=== PATIENT | female | born 1950 | race Caucasian/White ===

== ENCOUNTER 2016-03-28 13:04 | Emergency (ER) | payer MEDICARE, MEDICAID ==
[~2016-03-28 13:04] MED LIST: /CELE20CA OR; AMIT75TA2 OR; AMRIX OR; Amitiza OR; COLA100C2 OR; FLEXERIL OR; LIDO5DIS EXT; LISIPOW; LUBIPROSTONE; MS C15TA5 OR; PRIL20CA OR; PRIN10TA OR; ROSU10TA OR; TYLE500T53 OR; VICO5TAB; VICODIN OR
[2016-03-28] MEDS ORDERED: LORazepam 2 MG/ML VIAL (J2060) As Ordered ONE (13:27)
[2016-03-28] MEDS ORDERED: PERCOCET 5MG/325MG TAB As Ordered ONE (14:42)
--- NOTE | 2016-03-28 15:06 | REP ---
UNILATERAL LEFT RIBS, PA CHEST, FIVE VIEWS: HISTORY: Trauma. COMPARISON: 07/27/2014 Linear densities are present in the left lower lobe consistent with atelectasis or scar. The right lung is clear. The heart is normal in size. The pulmonary vasculature is normal in appearance. There is an old fracture of the left 5th rib. There is a possible fracture of the left 8th rib. There is no pneumothorax. IMPRESSION: 1. Left lower lobe atelectasis or scar. 2. There is a possible fracture of the left 8th rib. Signed by Naga Mari MD 03/28/2016 03:07 P
--- NOTE | 2016-03-28 15:09 | EDDOCDS ---
Physician Documentation [facility] Name: Kenzie Law Age: 65 yrs Sex: Female : 1950 Arrival Date: 03/28/2016 Time: 13:04 Bed 12 Private MD: Vern Galvez A. Disposition: 03/28/16 14:36 Discharged to Home/Self Care. Impression: Fracture of one rib, left side. - Condition is Stable. - Discharge Instructions: Rib Fracture. - Prescriptions for Percocet 5- 325 mg Oral Tablet - take 1 tablet by ORAL route every 6 hours As needed MDD: 4 tabs; 20 tablet. - Medication Reconciliation, Local Pharmacy Hours form. - Follow up: Vern Galvez; When: 4 - 5 days; Reason: Recheck today's complaints, Continuance of care. - Problem is new. - Symptoms are unchanged. - Notes: use incentive spiometer as directed Historical: - Allergies: no known allergies; - Home Meds: 1. Lisinopril Oral 2. Prilosec Oral 3. hydrocodone 4. Amitriptyline Oral - PMHx: Hypertension; Chronic Back pain; - PSHx: Laminectomy with fusion; Left hip repair; Right knee surgery; Hysterectomy; Cholecystectomy; Appendectomy; elbow surgery; - Social history: Smoking status: Patient uses tobacco products, heavy tobacco smoker. No barriers to communication noted, The patient speaks fluent Uzbek, Speaks appropriately for age. - Family history: Not pertinent. - : The pt / caregiver states he / she is not on anticoagulants. Home medication list is obtained from the patient. - Exposure Risk Screening:: None identified. Vital Signs: 03/28 13:23 BP 169 / 79; Pulse 102; Resp 20; Pulse Ox 90% on R/A; Weight 76.66 kg / 169.01 lbs; kc3 Height 5 ft. 1 in. (154.94 cm); 15:07 BP 136 / 65; Pulse 92; Resp 20; Temp 98.3(O); Pulse Ox 93% on R/A; kc3 13:23 Body Mass Index 31.93 (76.66 kg, 154.94 cm) kc3 MDM: 13:15 LORazepam 0.5 mg IVP once ordered. ke 13:16 Rib Unilat W/PA Chest Only Ordered. EDMS 14:33 Call Respiratory ordered. ke 14:33 -Incentive Spirometer ordered. ke 14:35 Call Respiratory complete. kc3 14:40 oxyCODONE-acetaminophen 5 mg-325 mg 1 tabs PO once ordered. ke 15:01 T-Sheet-- Draft Copy was scanned into [employer] and attached to record. gb Administered Medications: 13:40 Drug: LORazepam 0.5 mg [lorazepam 2 mg/mL injection solution (0.25 mL)] Route: IVP; kc3 Site: left forearm; 14:45 Drug: oxyCODONE-acetaminophen 1 tabs [oxycodone-acetaminophen 5 mg-325 mg tablet (1 kc3 tabs)] Route: PO; Signatures: Dispatcher [employer] EDMS Erika Whitehead, Reg Reg gb Jose Kemp, PSYCHOLOGIST INDUSTRIAL ORGANIZATIONAL PSYCHOLOGIST INDUSTRIAL ORGANIZATIONAL Althea Tellez,RN RN kc3 The chart was reviewed and I authenticate all verbal orders and agree with the evaluation and treatment provided.Attachments: 15:01 T-Sheet-- Draft Copy gb MTDD
--- NOTE | 2016-03-28 15:09 | EDDOCDS ---
Nurse's Notes [facility] Name: Kenzie Law Age: 65 yrs Sex: Female : 1950 Arrival Date: 03/28/2016 Time: 13:04 Bed 12 Private MD: Vern Galvez A. Diagnosis: Fracture of one rib, left side Presentation: 03/28 13:16 Presenting complaint: EMS states: pt with left rib pain after large tote fell from kc3 shelf landing on pt yesterday. Pt reports pain began this morning after raising her left arm. Adult Sepsis Screening: The patient does not have new or worsening altered mentation. Patient's respiratory rate is less than 22. Systolic blood pressure is greater than 100. Patient has a qSOFA score of 0- Negative Sepsis Screen. Suicide/Homicide risk assessment- the patient denies having any suicidal and/or homicidal ideations and does not present with any other emotional, behavioral or mental health complaints. Status: Patient is not a press service reader or dependent. Transition of care: patient was not received from another setting of care. 13:16 Acuity: BENTON Level 3 kc3 13:16 Method Of Arrival: Ambulance kc3 13:38 Care prior to arrival: Medications administered prior to arrival: Morphine 2mg IV x 2 kc3 doses for total of 4mg Morphine given by EMS enroute. Triage Assessment: 13:17 General: Appears uncomfortable, Behavior is appropriate for age, cooperative. Pain: kc3 Location: left rib Pain currently is 4 out of 10 on a pain scale. At worst was 10 out of 10 on a pain scale. Neurological: Level of Consciousness is awake, alert, obeys commands, Oriented to person, place, time. Respiratory: Airway is patent Respiratory effort is even, labored, Respiratory pattern is regular, symmetrical. Derm: Skin is pink, warm & dry. Musculoskeletal: Circulation, motion, and sensation intact. Historical: - Allergies: no known allergies; - Home Meds: 1. Lisinopril Oral 2. Prilosec Oral 3. hydrocodone 4. Amitriptyline Oral - PMHx: Hypertension; Chronic Back pain; - PSHx: Laminectomy with fusion; Left hip repair; Right knee surgery; Hysterectomy; Cholecystectomy; Appendectomy; elbow surgery; - Social history: Smoking status: Patient uses tobacco products, heavy tobacco smoker. No barriers to communication noted, The patient speaks fluent Hungarian, Speaks appropriately for age. - Family history: Not pertinent. - : The pt / caregiver states he / she is not on anticoagulants. Home medication list is obtained from the patient. - Exposure Risk Screening:: None identified. Screenin:38 Screening information is obtained from the patient. Fall risk: At risk due to injury, kc3 The following interventions are performed due to a positive Fall Risk Screen: Fall Risk is added to Special Handling on the patient Summary Screen. A Fall Risk Bracelet was applied to the patient. Side Rails are placed in the up position. A Call Ko is given with instruction to call for help when getting out of bed. Fall Alert bracelet is placed on the patient. Assistance ADL's: requires no assistance with activities of daily living. Abuse/DV Screen: The patient / caregiver reports he/she is: not in a situation that causes fear, pain or injury. Nutritional screening: No deficits noted. home support is adequate. 15:08 Advance Directives: Currently, there is no health care proxy. kc3 Assessment: 13:38 General: See triage note. . kc3 14:20 General: Appears uncomfortable, Behavior is appropriate for age, cooperative, Pt kc3 requesting pain medication. Jose JAVA WEBSPHERE DEVELOPER notified. . Neurological: Level of Consciousness is awake, alert, obeys commands. Respiratory: Airway is patent Respiratory effort is even, unlabored. Derm: Skin is pink, warm & dry. 15:06 General: Appears uncomfortable, Behavior is appropriate for age, cooperative. Pain: kc3 Location: left rib. Neurological: Level of Consciousness is awake, alert, obeys commands, Oriented to person, place, time. Respiratory: Airway is patent Respiratory effort is even, unlabored. Derm: Skin is pink, warm & dry. Vital Signs: 13:23 BP 169 / 79; Pulse 102; Resp 20; Pulse Ox 90% on R/A; Weight 76.66 kg; Height 5 ft. 1 kc3 in. (154.94 cm); 15:07 BP 136 / 65; Pulse 92; Resp 20; Temp 98.3(O); Pulse Ox 93% on R/A; kc3 13:23 Body Mass Index 31.93 (76.66 kg, 154.94 cm) kc3 Vitals: 13:23 Log In Time N/A - ambulance arrival. kc3 ED Course: 13:05 Patient visited by Mely Eugene, City Engineer. lbd 13:05 Patient moved to Waiting lbd 13:07 Vern Galvez is Private Physician. lbd 13:07 Althea Hernandez,RN is Primary Nurse. lbd 13:07 Patient moved to 12 lbd 13:12 Jose Kemp FNP is [facility]. ke 13:12 Patient visited by Jose Kemp FNP. ke 13:12 Patient visited by Jose Kemp FNP. ke 13:19 Triage Initiated kc3 13:35 Patient visited by Jose Kemp FNP. ke 13:39 The patient / caregiver is instructed regarding the plan of care and ED course. kc3 13:39 Maintain field IV. Dressing intact. Site clean & dry. Gauge & site: 18G left forearm. kc3 14:06 Patient visited by Ochoa Freed PCA. jlf 14:36 Vern Galvez is Referral Physician. ke 15:01 T-Sheet-- Draft Copy was scanned into [employer] and attached to record. gb 15:08 Discontinued IV lock intact, bleeding controlled, pressure dressing applied, No kc3 redness/swelling at site. No procedures done that require assistance. Administered Medications: 13:40 Drug: LORazepam 0.5 mg [lorazepam 2 mg/mL injection solution (0.25 mL)] Route: IVP; kc3 Site: left forearm; 14:45 Drug: oxyCODONE-acetaminophen 1 tabs [oxycodone-acetaminophen 5 mg-325 mg tablet (1 kc3 tabs)] Route: PO; RT: 14:42 Incentive Spirometry performed: 2 inspirations. Volume of inspiration: 1000 mls. sd7 Patient Education: Pt unable to take deep breath without extreme pain at this time. Pt instructed on importance of I/S and verbalizes understanding and will use. Order Results: There are currently no results for this order. Outcome: 14:36 Discharge ordered by Provider. ke 15:08 Discharge Assessment: Patient awake, alert and oriented x 3. No cognitive and/or kc3 functional deficits noted. Patient verbalized understanding of disposition instructions. patient administered narcotics - yes. Pt provided with safe discharge. The following High Risk Discharge criteria are identified: None. Condition: stable. Discharge instructions given to patient, Instructed on discharge instructions, follow up and referral plans. medication usage, Demonstrated understanding of instructions, medications, Pt was receptive of discharge instructions/ teaching. Prescriptions given X 1. No special radiology studies were completed. Property :Personal belongings accompany Pt. 15:08 Patient left the ED. kc3 Signatures: Mely Eugene, City Engineer Unit lbd Erika Whitehead, Reg Reg Jose Saenz, RECORD MAKER RECORD MAKER Ochoa Christianson, DOMINGUEZ FINISHING TECHNICIAN lucasf Rosa Connelly,RT RT sd7 Althea Hernandez,RN RN kc3 MTDD
--- NOTE | 2016-03-30 16:09 | EDDOCDS ---
Physician Documentation [facility] Name: Kenzie Lwa Age: 65 yrs Sex: Female : 1950 Arrival Date: 03/28/2016 Time: 13:04 Bed 12 Private MD: Vern Galvez A. Disposition: 03/28/16 14:36 Discharged to Home/Self Care. Impression: Fracture of one rib, left side. - Condition is Stable. - Discharge Instructions: Rib Fracture. - Prescriptions for Percocet 5- 325 mg Oral Tablet - take 1 tablet by ORAL route every 6 hours As needed MDD: 4 tabs; 20 tablet. - Medication Reconciliation, Local Pharmacy Hours form. - Follow up: Vern Galvez; When: 4 - 5 days; Reason: Recheck today's complaints, Continuance of care. - Problem is new. - Symptoms are unchanged. - Notes: use incentive spiometer as directed Historical: - Allergies: no known allergies; - Home Meds: 1. Lisinopril Oral 2. Prilosec Oral 3. hydrocodone 4. Amitriptyline Oral - PMHx: Hypertension; Chronic Back pain; - PSHx: Laminectomy with fusion; Left hip repair; Right knee surgery; Hysterectomy; Cholecystectomy; Appendectomy; elbow surgery; - Social history: Smoking status: Patient uses tobacco products, heavy tobacco smoker. No barriers to communication noted, The patient speaks fluent Serbian, Speaks appropriately for age. - Family history: Not pertinent. - : The pt / caregiver states he / she is not on anticoagulants. Home medication list is obtained from the patient. - Exposure Risk Screening:: None identified. Vital Signs: 03/28 13:23 BP 169 / 79; Pulse 102; Resp 20; Pulse Ox 90% on R/A; Weight 76.66 kg / 169.01 lbs; kc3 Height 5 ft. 1 in. (154.94 cm); 15:07 BP 136 / 65; Pulse 92; Resp 20; Temp 98.3(O); Pulse Ox 93% on R/A; kc3 13:23 Body Mass Index 31.93 (76.66 kg, 154.94 cm) kc3 MDM: 13:15 LORazepam 0.5 mg IVP once ordered. ke 13:16 Rib Unilat W/PA Chest Only Ordered. EDMS 14:33 Call Respiratory ordered. ke 14:33 -Incentive Spirometer ordered. ke 14:35 Call Respiratory complete. kc3 14:40 oxyCODONE-acetaminophen 5 mg-325 mg 1 tabs PO once ordered. ke 15:01 T-Sheet-- Draft Copy was scanned into [employer] and attached to record. gb 15:11 [facility] Payment Agreement was scanned into [employer] and attached to record. mm15 15:11 Financial registration complete. mm15 03/29 08:54 PCR was scanned into [employer] and attached to record. gb Administered Medications: 03/28 13:40 Drug: LORazepam 0.5 mg [lorazepam 2 mg/mL injection solution (0.25 mL)] Route: IVP; kc3 Site: left forearm; 14:45 Drug: oxyCODONE-acetaminophen 1 tabs [oxycodone-acetaminophen 5 mg-325 mg tablet (1 kc3 tabs)] Route: PO; Signatures: Dispatcher [employer] EDMS Erika Whitehead, Reg Reg Jose Kemp, DIRECTOR DANCE DIRECTOR DANCE Thania Schaeffer mm15 Althea Hernandez,RN RN kc3 The chart was reviewed and I authenticate all verbal orders and agree with the evaluation and treatment provided.Attachments: 15:01 T-Sheet-- Draft Copy gb 15:11 [facility] Payment Agreement mm15 Chart Complete MTDD
--- NOTE | 2016-03-30 16:09 | EDDOCDS ---
Nurse's Notes [facility] Name: Kenzie Law Age: 65 yrs Sex: Female : 1950 Arrival Date: 03/28/2016 Time: 13:04 Bed 12 Private MD: Vern Galvez A. Diagnosis: Fracture of one rib, left side Presentation: 03/28 13:16 Presenting complaint: EMS states: pt with left rib pain after large tote fell from kc3 shelf landing on pt yesterday. Pt reports pain began this morning after raising her left arm. Adult Sepsis Screening: The patient does not have new or worsening altered mentation. Patient's respiratory rate is less than 22. Systolic blood pressure is greater than 100. Patient has a qSOFA score of 0- Negative Sepsis Screen. Suicide/Homicide risk assessment- the patient denies having any suicidal and/or homicidal ideations and does not present with any other emotional, behavioral or mental health complaints. Status: Patient is not a internal revenue service agent or dependent. Transition of care: patient was not received from another setting of care. 13:16 Acuity: BENTON Level 3 kc3 13:16 Method Of Arrival: Ambulance kc3 13:38 Care prior to arrival: Medications administered prior to arrival: Morphine 2mg IV x 2 kc3 doses for total of 4mg Morphine given by EMS enroute. Triage Assessment: 13:17 General: Appears uncomfortable, Behavior is appropriate for age, cooperative. Pain: kc3 Location: left rib Pain currently is 4 out of 10 on a pain scale. At worst was 10 out of 10 on a pain scale. Neurological: Level of Consciousness is awake, alert, obeys commands, Oriented to person, place, time. Respiratory: Airway is patent Respiratory effort is even, labored, Respiratory pattern is regular, symmetrical. Derm: Skin is pink, warm & dry. Musculoskeletal: Circulation, motion, and sensation intact. Historical: - Allergies: no known allergies; - Home Meds: 1. Lisinopril Oral 2. Prilosec Oral 3. hydrocodone 4. Amitriptyline Oral - PMHx: Hypertension; Chronic Back pain; - PSHx: Laminectomy with fusion; Left hip repair; Right knee surgery; Hysterectomy; Cholecystectomy; Appendectomy; elbow surgery; - Social history: Smoking status: Patient uses tobacco products, heavy tobacco smoker. No barriers to communication noted, The patient speaks fluent [place] Citizen, Speaks appropriately for age. - Family history: Not pertinent. - : The pt / caregiver states he / she is not on anticoagulants. Home medication list is obtained from the patient. - Exposure Risk Screening:: None identified. Screenin:38 Screening information is obtained from the patient. Fall risk: At risk due to injury, kc3 The following interventions are performed due to a positive Fall Risk Screen: Fall Risk is added to Special Handling on the patient Summary Screen. A Fall Risk Bracelet was applied to the patient. Side Rails are placed in the up position. A Call Ko is given with instruction to call for help when getting out of bed. Fall Alert bracelet is placed on the patient. Assistance ADL's: requires no assistance with activities of daily living. Abuse/DV Screen: The patient / caregiver reports he/she is: not in a situation that causes fear, pain or injury. Nutritional screening: No deficits noted. home support is adequate. 15:08 Advance Directives: Currently, there is no health care proxy. kc3 Assessment: 13:38 General: See triage note. . kc3 14:20 General: Appears uncomfortable, Behavior is appropriate for age, cooperative, Pt kc3 requesting pain medication. Jose MIGRATION SPECIALIST notified. . Neurological: Level of Consciousness is awake, alert, obeys commands. Respiratory: Airway is patent Respiratory effort is even, unlabored. Derm: Skin is pink, warm & dry. 15:06 General: Appears uncomfortable, Behavior is appropriate for age, cooperative. Pain: kc3 Location: left rib. Neurological: Level of Consciousness is awake, alert, obeys commands, Oriented to person, place, time. Respiratory: Airway is patent Respiratory effort is even, unlabored. Derm: Skin is pink, warm & dry. Vital Signs: 13:23 BP 169 / 79; Pulse 102; Resp 20; Pulse Ox 90% on R/A; Weight 76.66 kg; Height 5 ft. 1 kc3 in. (154.94 cm); 15:07 BP 136 / 65; Pulse 92; Resp 20; Temp 98.3(O); Pulse Ox 93% on R/A; kc3 13:23 Body Mass Index 31.93 (76.66 kg, 154.94 cm) kc3 Vitals: 13:23 Log In Time N/A - ambulance arrival. kc3 ED Course: 13:05 Patient visited by Mely Eugene, Trouble Locater. lbd 13:05 Patient moved to Waiting lbd 13:07 Vern Galvez is Private Physician. lbd 13:07 Althea Hernandez,RN is Primary Nurse. lbd 13:07 Patient moved to 12 lbd 13:12 [facility]emp [facility]NP [facility]. ke 13:12 Patient visited by Jose Kemp FNP. ke 13:12 Patient visited by Jose Kemp FNP. ke 13:19 Triage Initiated kc3 13:35 Patient visited by Jose Kemp FNP. ke 13:39 The patient / caregiver is instructed regarding the plan of care and ED course. kc3 13:39 Maintain field IV. Dressing intact. Site clean & dry. Gauge & site: 18G left forearm. kc3 14:06 Patient visited by Ochoa Freed PCA. jlf 14:36 Vern Galvez is Referral Physician. ke 15:01 T-Sheet-- Draft Copy was scanned into [employer] and attached to record. gb 15:08 Discontinued IV lock intact, bleeding controlled, pressure dressing applied, No kc3 redness/swelling at site. No procedures done that require assistance. 15:11 [facility] Payment Agreement was scanned into [employer] and attached to record. mm15 15:54 Rib Unilat W/PA Chest Only Returned. EDMS 03/29 08:54 PCR was scanned into [employer] and attached to record. gb Administered Medications: 03/28 13:40 Drug: LORazepam 0.5 mg [lorazepam 2 mg/mL injection solution (0.25 mL)] Route: IVP; kc3 Site: left forearm; 14:45 Drug: oxyCODONE-acetaminophen 1 tabs [oxycodone-acetaminophen 5 mg-325 mg tablet (1 kc3 tabs)] Route: PO; RT: 14:42 Incentive Spirometry performed: 2 inspirations. Volume of inspiration: 1000 mls. sd7 Patient Education: Pt unable to take deep breath without extreme pain at this time. Pt instructed on importance of I/S and verbalizes understanding and will use. Order Results: Radiology Order: Rib Unilat W/PA Chest Only Test: Rib Unilat W/PA Chest Only REASON FOR EXAMINATION: Trauma; UNILATERAL LEFT RIBS, PA CHEST, FIVE VIEWS:; ; HISTORY: Trauma.; ; COMPARISON: 07/27/2014; ; Linear densities are present in the left lower lobe consistent with atelectasis; or scar. The right lung is clear. The heart is normal in size. The pulmonary; vasculature is normal in appearance. There is an old fracture of the left 5th; rib. There is a possible fracture of the left 8th rib. There is no pneumothorax.; ; IMPRESSION:; ; 1. Left lower lobe atelectasis or scar.; ; 2. There is a possible fracture of the left 8th rib.; ; ; Signed by; Naga Mari MD 03/28/2016 03:07 P; Outcome: 14:36 Discharge ordered by Provider. sammy 15:08 Discharge Assessment: Patient awake, alert and oriented x 3. No cognitive and/or kc3 functional deficits noted. Patient verbalized understanding of disposition instructions. patient administered narcotics - yes. Pt provided with safe discharge. The following High Risk Discharge criteria are identified: None. Condition: stable. Discharge instructions given to patient, Instructed on discharge instructions, follow up and referral plans. medication usage, Demonstrated understanding of instructions, medications, Pt was receptive of discharge instructions/ teaching. Prescriptions given X 1. No special radiology studies were completed. Property :Personal belongings accompany Pt. 15:08 Patient left the ED. kc3 Signatures: Dispatcher [employer] EDMS Mely Eugene, Trouble Locater Unit lbd Erika Whitehead, Reg Reg gb Jose Kemp, SSIS ETL DEVELOPER SSIS ETL DEVELOPER Thania Schaeffer mm15 Ochoa Freed PCA ALLERGY AND IMMUNOLOGY CHIEF Rosa Hargrove,RT RT sd7 Althea Hernandez,RN RN kc3 Chart Complete MTDD
--- NOTE | 2016-03-30 16:09 | EDDOCDS ---
Physician Documentation [facility] Name: Kenzie Law Age: 65 yrs Sex: Female : 1950 Arrival Date: 03/28/2016 Time: 13:04 Bed 12 Private MD: Vern Galvez A. Disposition: 03/28/16 14:36 Discharged to Home/Self Care. Impression: Fracture of one rib, left side. - Condition is Stable. - Discharge Instructions: Rib Fracture. - Prescriptions for Percocet 5- 325 mg Oral Tablet - take 1 tablet by ORAL route every 6 hours As needed MDD: 4 tabs; 20 tablet. - Medication Reconciliation, Local Pharmacy Hours form. - Follow up: Vern Galvez; When: 4 - 5 days; Reason: Recheck today's complaints, Continuance of care. - Problem is new. - Symptoms are unchanged. - Notes: use incentive spiometer as directed Historical: - Allergies: no known allergies; - Home Meds: 1. Lisinopril Oral 2. Prilosec Oral 3. hydrocodone 4. Amitriptyline Oral - PMHx: Hypertension; Chronic Back pain; - PSHx: Laminectomy with fusion; Left hip repair; Right knee surgery; Hysterectomy; Cholecystectomy; Appendectomy; elbow surgery; - Social history: Smoking status: Patient uses tobacco products, heavy tobacco smoker. No barriers to communication noted, The patient speaks fluent Armenian, Speaks appropriately for age. - Family history: Not pertinent. - : The pt / caregiver states he / she is not on anticoagulants. Home medication list is obtained from the patient. - Exposure Risk Screening:: None identified. Vital Signs: 03/28 13:23 BP 169 / 79; Pulse 102; Resp 20; Pulse Ox 90% on R/A; Weight 76.66 kg / 169.01 lbs; kc3 Height 5 ft. 1 in. (154.94 cm); 15:07 BP 136 / 65; Pulse 92; Resp 20; Temp 98.3(O); Pulse Ox 93% on R/A; kc3 13:23 Body Mass Index 31.93 (76.66 kg, 154.94 cm) kc3 MDM: 13:15 LORazepam 0.5 mg IVP once ordered. ke 13:16 Rib Unilat W/PA Chest Only Ordered. EDMS 14:33 Call Respiratory ordered. ke 14:33 -Incentive Spirometer ordered. ke 14:35 Call Respiratory complete. kc3 14:40 oxyCODONE-acetaminophen 5 mg-325 mg 1 tabs PO once ordered. ke 15:01 T-Sheet-- Draft Copy was scanned into [employer] and attached to record. gb 15:11 [facility] Payment Agreement was scanned into [employer] and attached to record. mm15 15:11 Financial registration complete. mm15 03/29 08:54 PCR was scanned into [employer] and attached to record. gb Administered Medications: 03/28 13:40 Drug: LORazepam 0.5 mg [lorazepam 2 mg/mL injection solution (0.25 mL)] Route: IVP; kc3 Site: left forearm; 14:45 Drug: oxyCODONE-acetaminophen 1 tabs [oxycodone-acetaminophen 5 mg-325 mg tablet (1 kc3 tabs)] Route: PO; Signatures: Dispatcher [employer] EDMS Erika Whitehead, Reg Reg Jose Kemp, SKIN SPECIALIST SKIN SPECIALIST Thania Schaeffer mm15 Althea Hernandez,RN RN kc3 The chart was reviewed and I authenticate all verbal orders and agree with the evaluation and treatment provided.Attachments: 15:01 T-Sheet-- Draft Copy gb 15:11 [facility] Payment Agreement mm15 Chart Complete MTDD
== END 2016-03-28 15:08 | disposition home or self-care (01) ==
LOC: M ED 13:04
DX: S22.32XA Fracture of one rib, left side, initial encounter for closed fracture (principal); W20.8XXA Other cause of strike by thrown, projected or falling object, initial encounter; Y92.89 Other specified places as the place of occurrence of the external cause; Y93.89 Activity, other specified; Y99.8 Other external cause status; I10 Essential (primary) hypertension; M54.9 Dorsalgia, unspecified; F17.210 Nicotine dependence, cigarettes, uncomplicated; Z98.1 Arthrodesis status; Z79.899 Other long term (current) drug therapy
CPT/HCPCS: 71101; 96374; 99283; J2060

== ENCOUNTER → 2017-10-10 | Outpatient (REF) | payer MEDICARE, MEDICAID, OTHER ==
[2017-10-10 12:57] LABS: BASO # 0.1 10^3/uL (0.0-0.2); BASO % 0.5 % (0.0-1.0); EOS # 0.2 10^3/uL (0.0-0.50); EOS % 1.9 % (0.0-3.0); HEMATOCRIT 26.7 % (36.0-47.0); HEMOGLOBIN 8.1 g/dl (12.0-15.5); IMMATURE GRANULOCYTE % 1.1 % (0-3.0); LYMPH # 1.8 10^3/uL (1.5-4.5); LYMPH % 18.9 % (24.0-44.0); MEAN CORPUSCULAR HEMOGLOBIN 24.3 pg (27.0-33.0); MEAN CORPUSCULAR HGB CONC 30.3 g/dl (32.0-36.5); MEAN CORPUSCULAR VOLUME 79.9 fl (80.0-96.0); MONO # 0.6 10^3/uL (0.0-0.8); MONO % 6.4 % (0.0-5.0); NEUTROPHILS # 6.9 10^3/uL (1.8-7.7); NEUTROPHILS % 71.2 % (36.0-66.0); PLATELET COUNT, AUTOMATED 359 10^3/uL (150-450); RED BLOOD COUNT 3.34 10^6/uL (4.00-5.40); RED CELL DISTRIBUTION WIDTH 17.9 % (11.5-14.5); WHITE BLOOD COUNT 9.7 10^3/uL (4.0-10.0)
[2017-10-10 13:10] LABS: ANION GAP 8 MEQ/L (8-16); BLOOD UREA NITROGEN 11 MG/DL (7-18); CALCIUM LEVEL 8.8 MG/DL (8.8-10.2); CARBON DIOXIDE LEVEL 30 MEQ/L (21-32); CHLORIDE LEVEL 102 MEQ/L (98-107); CREATININE FOR GFR 0.96 MG/DL (0.55-1.30); GLOMERULAR FILTRATION RATE > 60.0 (>45); GLUCOSE, FASTING 108 MG/DL (70-100); POTASSIUM SERUM 4.3 MEQ/L (3.5-5.1); SODIUM LEVEL 140 MEQ/L (136-145)
[2017-10-10 13:30] LABS: ESTIMATED AVERAGE GLUCOSE 117 MG/DL (60-110); HEMOGLOBIN A1c 5.7 %
== END ==
LOC: M LABDRAW1 12:18
DX: E11.9 Type 2 diabetes mellitus without complications (principal); I10 Essential (primary) hypertension
CPT/HCPCS: 83036

== ENCOUNTER → 2017-10-17 | Outpatient (CLI) | payer MEDICARE, MEDICAID, OTHER ==
[2017-10-17 19:15] LABS: BASO % 0.3 % (0.0-1.0); EOS # 0.1 10^3/uL (0.0-0.50); HEMATOCRIT 24.5 % (36.0-47.0); HEMOGLOBIN 7.4 g/dl (12.0-15.5); IMMATURE GRANULOCYTE % 0.6 % (0-3.0); LYMPH % 20.4 % (24.0-44.0); MEAN CORPUSCULAR HEMOGLOBIN 24.3 pg (27.0-33.0); MEAN CORPUSCULAR HGB CONC 30.2 g/dl (32.0-36.5); MEAN CORPUSCULAR VOLUME 80.3 fl (80.0-96.0); MONO # 0.7 10^3/uL (0.0-0.8); NEUTROPHILS # 7.1 10^3/uL (1.8-7.7); NEUTROPHILS % 70.7 % (36.0-66.0); PLATELET COUNT, AUTOMATED 352 10^3/uL (150-450); RED BLOOD COUNT 3.05 10^6/uL (4.00-5.40); RED CELL DISTRIBUTION WIDTH 17.3 % (11.5-14.5)
[2017-10-17 19:35] LABS: FERRITIN 5 NG/ML (8-252); IRON (FE) 34 UG/DL (50-170); PERCENT SATURATION 6.8 % (13.2-45.0); TOTAL IRON BINDING CAPACITY 500 UG/DL (250-450)
== END ==
LOC: M WUC 16:55
DX: D64.9 Anemia, unspecified (principal)
CPT/HCPCS: 83550

== ENCOUNTER 2017-10-22 14:14 | Inpatient (IN) | payer MEDICARE, MEDICAID, OTHER ==
[2017-10-22] MEDS: PANTOPRAZOLE 40MG INJ (PROTONIX) (C9113) IV (15:08)
[2017-10-22 15:09] LABS: BASO % 0.4 % (0.0-1.0); EOS # 0.1 10^3/uL (0.0-0.50); EOS % 0.7 % (0.0-3.0); HEMATOCRIT 24.4 % (36.0-47.0); HEMOGLOBIN 7.4 g/dl (12.0-15.5); IMMATURE GRANULOCYTE % 0.5 % (0-3.0); LYMPH # 2.6 10^3/uL (1.5-4.5); LYMPH % 31.9 % (24.0-44.0); MEAN CORPUSCULAR HGB CONC 30.3 g/dl (32.0-36.5); MEAN CORPUSCULAR VOLUME 79.2 fl (80.0-96.0); MONO # 0.6 10^3/uL (0.0-0.8); MONO % 7.6 % (0.0-5.0); NEUTROPHILS # 4.8 10^3/uL (1.8-7.7); NEUTROPHILS % 58.9 % (36.0-66.0); PLATELET COUNT, AUTOMATED 274 10^3/uL (150-450); RED BLOOD COUNT 3.08 10^6/uL (4.00-5.40); RED CELL DISTRIBUTION WIDTH 17.2 % (11.5-14.5); WHITE BLOOD COUNT 8.2 10^3/uL (4.0-10.0)
[2017-10-22 15:11] LABS: VENOUS BASE EXCESS 1.2 (-2.0-2.0); VENOUS HCO3 26.7 MEQ/L (23.0-27.0); VENOUS O2 SATURATION 98.4 % (60.0-80.0); VENOUS PARTIAL PRESSURE CO2 47.3 mmHg (38.0-50.0); VENOUS PARTIAL PRESSURE O2 115.6 mmHg (30.0-50.0); VENOUS STANDARD HCO3 25.5 MEQ/L; VENOUS TOTAL CO2 28.2 MEQ/L (24.0-28.0)
[2017-10-22 15:22] LABS: ALBUMIN 3.8 GM/DL (3.2-5.2); ALBUMIN/GLOBULIN RATIO 1.19 (1.00-1.93); ALKALINE PHOSPHATASE 75 U/L (45-117); ALT/SGPT 16 U/L (12-78); ANION GAP 9 MEQ/L (8-16); AST/SGOT 16 U/L (7-37); BILIRUBIN,DIRECT 0.1 MG/DL (0.0-0.2); BILIRUBIN,TOTAL 0.4 MG/DL (0.2-1.0); BLOOD UREA NITROGEN 16 MG/DL (7-18); CARBON DIOXIDE LEVEL 28 MEQ/L (21-32); CHLORIDE LEVEL 101 MEQ/L (98-107); CPK CREATINE PHOSPHOKINASE 86 U/L (26-192); CREATININE FOR GFR 0.94 MG/DL (0.55-1.30); GLOMERULAR FILTRATION RATE > 60.0 (>45); GLUCOSE, FASTING 100 MG/DL (70-100); POTASSIUM SERUM 3.8 MEQ/L (3.5-5.1); SODIUM LEVEL 138 MEQ/L (136-145); TROPONIN I < 0.02 NG/ML (< 0.10)
[2017-10-22 15:24] LABS: INR 0.89; PROTHROMBIN TIME 12.1 SECONDS (12.1-14.4)
[2017-10-22 15:27] LABS: CK-MB VALUE MASS 2.7 NG/ML (<3.6); MB/CK RELATIVE INDEX 3.13 (< OR =4)
[2017-10-22 16:38] LABS: IMMEDIATE SPIN CROSSMATCH 1 2
[2017-10-22] MEDS ORDERED: NORCO, ANEXSIA 5/325MG TABLET (HYDROcodone/ACETAMINOPHEN) PO (17:45)
[2017-10-22] MEDS ORDERED: ACETAMINOPHEN TAB 650MG DOSE (2X325MG) PO (17:45)
[2017-10-22] MEDS ORDERED: ONDANSETRON 4 MG TAB (S0181) PO (17:45)
[2017-10-22] MEDS ORDERED: BISACODYL 10 MG SUPP PR (17:45)
[2017-10-22] MEDS: AMITRIPTYLINE 50 MG TAB PO (21:47)
[2017-10-22] MEDS: tiZANidine 4 MG TAB PO (21:47)
[2017-10-22] MEDS: FERROUS SULFATE 325MG TAB PO (21:48)
[2017-10-22] MEDS: DOCUSATE SODIUM 100 MG CAP PO (21:48)
[2017-10-22] MEDS: LISINOPRIL 20 MG TAB PO (21:51)
[2017-10-23 05:15] LABS: HEMATOCRIT 29.6 % (36.0-47.0); MEAN CORPUSCULAR HEMOGLOBIN 24.7 pg (27.0-33.0); MEAN CORPUSCULAR HGB CONC 30.4 g/dl (32.0-36.5); MEAN CORPUSCULAR VOLUME 81.1 fl (80.0-96.0); PLATELET COUNT, AUTOMATED 204 10^3/uL (150-450); RED BLOOD COUNT 3.65 10^6/uL (4.00-5.40); WHITE BLOOD COUNT 6.5 10^3/uL (4.0-10.0)
[2017-10-23 05:33] LABS: ESTIMATED AVERAGE GLUCOSE 105 MG/DL (60-110); HEMOGLOBIN A1c 5.3 %
[2017-10-23 05:43] LABS: ALBUMIN 3.1 GM/DL (3.2-5.2); ALBUMIN/GLOBULIN RATIO 1.07 (1.00-1.93); ALKALINE PHOSPHATASE 65 U/L (45-117); ALT/SGPT 13 U/L (12-78); ANION GAP 5 MEQ/L (8-16); AST/SGOT 11 U/L (7-37); BILIRUBIN,TOTAL 0.5 MG/DL (0.2-1.0); BLOOD UREA NITROGEN 13 MG/DL (7-18); CALCIUM LEVEL 8.7 MG/DL (8.8-10.2); CARBON DIOXIDE LEVEL 33 MEQ/L (21-32); CHLORIDE LEVEL 103 MEQ/L (98-107); CHOLESTEROL LEVEL 170 MG/DL (<200); CHOLESTEROL RISK RATIO 3.617 (<5); CREATININE FOR GFR 0.86 MG/DL (0.55-1.30); FERRITIN 6 NG/ML (8-252); GLOMERULAR FILTRATION RATE > 60.0 (>45); GLUCOSE, FASTING 104 MG/DL (70-100); HDL CHOLESTEROL 47 MG/DL (>40); IRON (FE) 414 UG/DL (50-170); LDL CHOLESTEROL 87.2 MG/DL (<100); NON-HDL-C 123 MG/DL; PERCENT SATURATION 85.9 % (13.2-45.0); POTASSIUM SERUM 4.3 MEQ/L (3.5-5.1); SODIUM LEVEL 141 MEQ/L (136-145); THYROID STIMULATING HORMONE 0.828 uIU/ML (0.358-3.740); TOTAL IRON BINDING CAPACITY 482 UG/DL (250-450); TRIGLYCERIDES LEVEL 179 MG/DL (<150)
[2017-10-23 08:24] LABS: FOLATE 12.3 NG/ML (>5.4); VITAMIN B12 LEVEL 341 PG/ML (247-911)
[2017-10-23] MEDS: DOCUSATE SODIUM 100 MG CAP PO ×2 (09:18→20:21)
[2017-10-23] MEDS: PANTOPRAZOLE 40MG INJ (PROTONIX) (C9113) IV ×2 (09:18→20:21)
[2017-10-23] MEDS: MIRALAX *UNIT DOSE* 17GM PACKET PO (09:18)
[2017-10-23] MEDS: FERROUS SULFATE 325MG TAB PO (09:18)
[2017-10-23] MEDS ORDERED: GLUCAGON FOR INJ 1 MG VIAL (J1610) As Ordered (10:10)
[2017-10-23] MEDS ORDERED: LIDOCAINE 2% INJ 100 MG/5 ML SDV (FOR ANES.) As Ordered (12:15)
[2017-10-23] MEDS ORDERED: PROPOFOL 200 MG/20 ML VIAL As Ordered (12:15)
[2017-10-23] MEDS ORDERED: MIDAZOLAM INJ 2 MG/2 ML VIAL (J2250) As Ordered (12:15)
[2017-10-23] MEDS ORDERED: fentaNYL 100 MCG/2 ML INJECTION (J3010) As Ordered (12:15)
[2017-10-23] MEDS: MOM 30ML SUSPENSION UDC PO (13:22)
[2017-10-23] MEDS: GOLYTELY SOLN 4000 ML BTL PO (18:01)
[2017-10-23] MEDS: tiZANidine 4 MG TAB PO (20:21)
[2017-10-23] MEDS: AMITRIPTYLINE 50 MG TAB PO (20:21)
[2017-10-24] MEDS: GOLYTELY SOLN 4000 ML BTL PO (04:49)
[2017-10-24] MEDS ORDERED: LIDOCAINE 2% INJ 100 MG/5 ML SDV (FOR ANES.) As Ordered ×2 (07:03→12:22)
[2017-10-24] MEDS ORDERED: PROPOFOL 200 MG/20 ML VIAL As Ordered (07:03)
[2017-10-24] MEDS: PANTOPRAZOLE 40MG INJ (PROTONIX) (C9113) IV ×2 (08:47→20:50)
[2017-10-24] MEDS: DOCUSATE SODIUM 100 MG CAP PO ×2 (08:47→20:50)
[2017-10-24] MEDS: MIRALAX *UNIT DOSE* 17GM PACKET PO (08:47)
[2017-10-24 09:10] LABS: BASO % 0.3 % (0.0-1.0); EOS # 0.1 10^3/uL (0.0-0.50); EOS % 1.7 % (0.0-3.0); HEMATOCRIT 30.7 % (36.0-47.0); HEMOGLOBIN 9.2 g/dl (12.0-15.5); IMMATURE GRANULOCYTE % 0.5 % (0-3.0); LYMPH # 1.5 10^3/uL (1.5-4.5); LYMPH % 26.3 % (24.0-44.0); MEAN CORPUSCULAR VOLUME 83.4 fl (80.0-96.0); MONO # 0.5 10^3/uL (0.0-0.8); MONO % 7.8 % (0.0-5.0); NEUTROPHILS # 3.7 10^3/uL (1.8-7.7); NEUTROPHILS % 63.4 % (36.0-66.0); PLATELET COUNT, AUTOMATED 213 10^3/uL (150-450); RED BLOOD COUNT 3.68 10^6/uL (4.00-5.40); RED CELL DISTRIBUTION WIDTH 17.7 % (11.5-14.5); WHITE BLOOD COUNT 5.9 10^3/uL (4.0-10.0)
[2017-10-24 09:48] LABS: ANION GAP 7 MEQ/L (8-16); BLOOD UREA NITROGEN 5 MG/DL (7-18); CALCIUM LEVEL 8.4 MG/DL (8.8-10.2); CARBON DIOXIDE LEVEL 33 MEQ/L (21-32); CHLORIDE LEVEL 106 MEQ/L (98-107); CREATININE FOR GFR 0.73 MG/DL (0.55-1.30); GLOMERULAR FILTRATION RATE > 60.0 (>45); GLUCOSE, FASTING 138 MG/DL (70-100); POTASSIUM SERUM 4.3 MEQ/L (3.5-5.1); SODIUM LEVEL 146 MEQ/L (136-145)
[2017-10-24] MEDS ORDERED: VoLumen 0.1% SUSPENSION 450ML BOTTLE As Ordered (13:08)
[2017-10-24] MEDS ORDERED: GLUCAGON FOR INJ 1 MG VIAL (J1610) As Ordered (13:08)
[2017-10-24] MEDS ORDERED: ISOVUE-370 76% 100ML VIAL (Q9967) As Ordered (13:09)
[2017-10-24] MEDS: IRON SUCROSE 500 MG in NS 250 ML IV (14:52)
[2017-10-24] MEDS: tiZANidine 4 MG TAB PO (20:50)
[2017-10-24] MEDS: AMITRIPTYLINE 50 MG TAB PO (20:50)
[2017-10-25 06:41] LABS: HEMATOCRIT 31.6 % (36.0-47.0); HEMOGLOBIN 9.5 g/dl (12.0-15.5); MEAN CORPUSCULAR HEMOGLOBIN 24.7 pg (27.0-33.0); MEAN CORPUSCULAR HGB CONC 30.1 g/dl (32.0-36.5); MEAN CORPUSCULAR VOLUME 82.3 fl (80.0-96.0); PLATELET COUNT, AUTOMATED 207 10^3/uL (150-450); RED BLOOD COUNT 3.84 10^6/uL (4.00-5.40); RED CELL DISTRIBUTION WIDTH 18.2 % (11.5-14.5); WHITE BLOOD COUNT 9.1 10^3/uL (4.0-10.0)
[2017-10-25 07:02] LABS: ANION GAP 6 MEQ/L (8-16); BLOOD UREA NITROGEN 6 MG/DL (7-18); CALCIUM LEVEL 8.4 MG/DL (8.8-10.2); CARBON DIOXIDE LEVEL 31 MEQ/L (21-32); CHLORIDE LEVEL 108 MEQ/L (98-107); CREATININE FOR GFR 0.69 MG/DL (0.55-1.30); GLOMERULAR FILTRATION RATE > 60.0 (>45); GLUCOSE, FASTING 106 MG/DL (70-100); POTASSIUM SERUM 4.2 MEQ/L (3.5-5.1); SODIUM LEVEL 145 MEQ/L (136-145)
[2017-10-25] MEDS: DOCUSATE SODIUM 100 MG CAP PO (09:46)
[2017-10-25] MEDS: MIRALAX *UNIT DOSE* 17GM PACKET PO (09:46)
[2017-10-25] MEDS: PANTOPRAZOLE 40MG INJ (PROTONIX) (C9113) IV (09:47)
== END 2017-10-25 12:49 | disposition home or self-care (01) | DRG 378 ==
LOC: M MSPAV 10-23 15:55 → M ED 14:14 → M ED INP 17:43 → M ICU 20:08
PROC: 0DJ08ZZ Inspection of Upper Intestinal Tract, Via Natural or Artificial Opening Endoscopic (ICD-10-PCS; principal; 2017-10-23 12:00)
PROC: 0DBK8ZX Excision of Ascending Colon, Via Natural or Artificial Opening Endoscopic, Diagnostic (ICD-10-PCS; 2017-10-23 12:03)
PROC: 0DBH8ZX Excision of Cecum, Via Natural or Artificial Opening Endoscopic, Diagnostic (ICD-10-PCS; 2017-10-23 12:03)
PROC: 0DBP8ZX Excision of Rectum, Via Natural or Artificial Opening Endoscopic, Diagnostic (ICD-10-PCS; 2017-10-23 12:03)
PROC: 0DBN8ZX Excision of Sigmoid Colon, Via Natural or Artificial Opening Endoscopic, Diagnostic (ICD-10-PCS; 2017-10-23 12:03)
PROC: 30233N1 Transfusion of Nonautologous Red Blood Cells into Peripheral Vein, Percutaneous Approach (ICD-10-PCS; 2017-10-23 12:03)
DX: K92.2 Gastrointestinal hemorrhage, unspecified (principal); D62 Acute posthemorrhagic anemia; F17.210 Nicotine dependence, cigarettes, uncomplicated; I10 Essential (primary) hypertension; I73.9 Peripheral vascular disease, unspecified; D12.2 Benign neoplasm of ascending colon; D12.0 Benign neoplasm of cecum; D50.9 Iron deficiency anemia, unspecified; K63.5 Polyp of colon; K64.9 Unspecified hemorrhoids; K57.90 Diverticulosis of intestine, part unspecified, without perforation or abscess without bleeding; Z79.82 Long term (current) use of aspirin; Z79.899 Other long term (current) drug therapy; Z88.4 Allergy status to anesthetic agent; Z88.8 Allergy status to other drugs, medicaments and biological substances

== ENCOUNTER → 2017-11-01 | Outpatient (CLI) | payer MEDICARE, MEDICAID ==
[2017-11-01 12:21] LABS: BASO % 0.5 % (0.0-1.0); EOS # 0.1 10^3/uL (0.0-0.50); EOS % 1.4 % (0.0-3.0); HEMATOCRIT 36.6 % (36.0-47.0); HEMOGLOBIN 10.9 g/dl (12.0-15.5); IMMATURE GRANULOCYTE % 0.6 % (0-3.0); LYMPH # 1.9 10^3/uL (1.5-4.5); LYMPH % 27.8 % (24.0-44.0); MEAN CORPUSCULAR HEMOGLOBIN 25.4 pg (27.0-33.0); MEAN CORPUSCULAR HGB CONC 29.8 g/dl (32.0-36.5); MEAN CORPUSCULAR VOLUME 85.3 fl (80.0-96.0); MONO # 0.4 10^3/uL (0.0-0.8); MONO % 6.6 % (0.0-5.0); NEUTROPHILS # 4.2 10^3/uL (1.8-7.7); NEUTROPHILS % 63.1 % (36.0-66.0); PLATELET COUNT, AUTOMATED 202 10^3/uL (150-450); RED BLOOD COUNT 4.29 10^6/uL (4.00-5.40); RED CELL DISTRIBUTION WIDTH 21.2 % (11.5-14.5); RETIC HEMOGLOBIN EQUIVALENT 31.5 pg (24-36); RETICULOCYTE # 118.8 10^9/L (17-77); RETICULOCYTE % 2.8 % (0.5-1.5); WHITE BLOOD COUNT 6.7 10^3/uL (4.0-10.0)
[2017-11-01 13:04] LABS: POSITIVE MORPH POS FLAG
== END ==
LOC: M LAB 11:35
DX: D64.9 Anemia, unspecified (principal)
CPT/HCPCS: 85025

== ENCOUNTER → 2018-01-10 | Outpatient (CLI) | payer MEDICARE, MEDICAID ==
[2018-01-10 14:09] LABS: BASO % 0.5 % (0.0-1.0); EOS # 0.1 10^3/uL (0.0-0.50); EOS % 1.6 % (0.0-3.0); HEMATOCRIT 38.7 % (36.0-47.0); HEMOGLOBIN 12.1 g/dl (12.0-15.5); IMMATURE GRANULOCYTE % 0.7 % (0-3.0); LYMPH # 2.2 10^3/uL (1.5-4.5); LYMPH % 29.2 % (24.0-44.0); MEAN CORPUSCULAR HEMOGLOBIN 29.7 pg (27.0-33.0); MEAN CORPUSCULAR HGB CONC 31.3 g/dl (32.0-36.5); MEAN CORPUSCULAR VOLUME 95.1 fl (80.0-96.0); MONO # 0.7 10^3/uL (0.0-0.8); MONO % 8.7 % (0.0-5.0); NEUTROPHILS # 4.4 10^3/uL (1.8-7.7); NEUTROPHILS % 59.3 % (36.0-66.0); PLATELET COUNT, AUTOMATED 272 10^3/uL (150-450); RED BLOOD COUNT 4.07 10^6/uL (4.00-5.40); RED CELL DISTRIBUTION WIDTH 15.4 % (11.5-14.5); WHITE BLOOD COUNT 7.4 10^3/uL (4.0-10.0)
== END ==
LOC: M WUC 11:15
DX: D64.9 Anemia, unspecified (principal)
CPT/HCPCS: 85025

== ENCOUNTER → 2018-06-12 | Outpatient (CLI) | payer MEDICARE, MEDICAID ==
[~2018-06-12] MED LIST changes: -/CELE20CA OR; +AMIT100TA PO; +ASPI81TA85 PO; +CELE1CAP4 OR; -COLA100C2 OR; +COLA100C2 PO; +CRES10TA32 OR; +FERR32TA PO; +HYDR-3713 PO; +MIRA3350 PO; -PRIL20CA OR; +PRIL20CA PO; -PRIN10TA OR; +PRIN10TA PO; -ROSU10TA OR; +TIZA4CAP PO
[2018-06-12 13:07] LABS: BASO # 0.1 10^3/uL (0.0-0.2); BASO % 0.7 % (0.0-1.0); EOS # 0.2 10^3/uL (0.0-0.50); EOS % 2.3 % (0.0-3.0); HEMATOCRIT 44.6 % (36.0-47.0); HEMOGLOBIN 13.7 g/dl (12.0-15.5); LYMPH # 1.6 10^3/uL (1.5-4.5); LYMPH % 23.3 % (24.0-44.0); MEAN CORPUSCULAR HEMOGLOBIN 29.9 pg (27.0-33.0); MEAN CORPUSCULAR HGB CONC 30.7 g/dl (32.0-36.5); MEAN CORPUSCULAR VOLUME 97.4 fl (80.0-96.0); MONO # 0.7 10^3/uL (0.0-0.8); MONO % 9.5 % (0.0-5.0); NEUTROPHILS # 4.3 10^3/uL (1.8-7.7); NEUTROPHILS % 63.6 % (36.0-66.0); PLATELET COUNT, AUTOMATED 214 10^3/uL (150-450); RED BLOOD COUNT 4.58 10^6/uL (4.00-5.40); WHITE BLOOD COUNT 6.8 10^3/uL (4.0-10.0)
[2018-06-12 13:23] LABS: ALBUMIN 3.8 GM/DL (3.2-5.2); ALT/SGPT 19 U/L (12-78); BILIRUBIN,TOTAL 0.3 MG/DL (0.2-1.0); BLOOD UREA NITROGEN 20 MG/DL (7-18); CALCIUM LEVEL 9.2 MG/DL (8.8-10.2); CARBON DIOXIDE LEVEL 32 MEQ/L (21-32); CHLORIDE LEVEL 103 MEQ/L (98-107); CHOLESTEROL LEVEL 233 MG/DL (<200); CHOLESTEROL RISK RATIO 4.017 (<5); GLOMERULAR FILTRATION RATE > 60.0 (>45); GLUCOSE, FASTING 128 MG/DL (70-100); HDL CHOLESTEROL 58 MG/DL (>40); LDL CHOLESTEROL 152 MG/DL (<100); MAGNESIUM LEVEL 1.7 MG/DL (1.8-2.4); NON-HDL-C 175 MG/DL; POTASSIUM SERUM 4.6 MEQ/L (3.5-5.1); SODIUM LEVEL 140 MEQ/L (136-145); TOTAL PROTEIN 6.7 GM/DL (6.4-8.2); TRIGLYCERIDES LEVEL 116 MG/DL (<150)
[2018-06-12 13:34] LABS: HEMOGLOBIN A1c 5.5 %
[2018-06-12 13:39] LABS: CREATININE, URINE 93.7 MG/DL; MALB URINE SIEMENS 33.4 MG/L; MAU/CREAT RATIO 35.6 MCG/MG (0.0-30.0)
== END ==
LOC: M WUC 08:26
PROVIDERS: ATTEND Family Medicine
DX: E11.9 Type 2 diabetes mellitus without complications (principal); R25.2 Cramp and spasm

== ENCOUNTER → 2018-10-31 | Outpatient (CLI) | payer MEDICARE, MEDICAID ==
[2018-10-31 16:51] LABS: BASO % 0.5 % (0.0-1.0); BLOOD UREA NITROGEN 16 MG/DL (7-18); CALCIUM LEVEL 9.2 MG/DL (8.8-10.2); CARBON DIOXIDE LEVEL 34 MEQ/L (21-32); CHLORIDE LEVEL 98 MEQ/L (98-107); CREATININE FOR GFR 0.86 MG/DL (0.55-1.30); EOS # 0.1 10^3/uL (0.0-0.50); EOS % 0.8 % (0.0-3.0); GLOMERULAR FILTRATION RATE > 60.0 (>39); GLUCOSE, FASTING 96 MG/DL (70-100); HEMATOCRIT 43.4 % (36.0-47.0); HEMOGLOBIN 13.8 g/dl (12.0-15.5); LYMPH # 1.4 10^3/uL (1.5-4.5); LYMPH % 20.9 % (24.0-44.0); MEAN CORPUSCULAR HEMOGLOBIN 30.3 pg (27.0-33.0); MEAN CORPUSCULAR HGB CONC 31.8 g/dl (32.0-36.5); MEAN CORPUSCULAR VOLUME 95.2 fl (80.0-96.0); MONO # 0.5 10^3/uL (0.0-0.8); MONO % 7.2 % (0.0-5.0); NEUTROPHILS # 4.6 10^3/uL (1.8-7.7); NEUTROPHILS % 70.1 % (36.0-66.0); PLATELET COUNT, AUTOMATED 220 10^3/uL (150-450); POTASSIUM SERUM 4.7 MEQ/L (3.5-5.1); RED BLOOD COUNT 4.56 10^6/uL (4.00-5.40); RHEUMATOID FACTOR QUANT < 10.0 IU/ML (<15.0); SODIUM LEVEL 138 MEQ/L (136-145); WHITE BLOOD COUNT 6.6 10^3/uL (4.0-10.0)
[2018-10-31 17:14] LABS: ERYTHROCYTE SEDIMENTATION RATE 12 mm/hr (0-30)
[2018-11-04 00:10] LABS: ANTINUCLEAR ANTIBODIES DIRECT Negative (Negative); CYCLIC CITRULLINATED PEPTIDE 4 units (0-19); Lyme Disease IgG/IgM Antibodie <0.91 ISR (0.00-0.90); Lyme Disease IgM Ab Quantitati <0.80 index (0.00-0.79)
== END ==
LOC: M WUC 11:57
PROVIDERS: ATTEND Family Medicine
DX: M06.4 Inflammatory polyarthropathy (principal)

== ENCOUNTER → 2019-01-28 | Outpatient (REF) | payer MEDICARE, MEDICAID ==
[2019-01-29 12:51] LABS: AMORPHOUS SEDIMENT SMALL (NEGATIVE); APPEARANCE, URINE CLEAR (CLEAR); BACTERIA, URINE AUTO NEGATIVE (NEGATIVE); BILIRUBIN, URINE AUTO NEGATIVE (NEGATIVE); BLOOD, URINE BLOOD NEGATIVE (NEGATIVE); COLOR, URINE YELLOW (YELLOW); GLUCOSE, URINE (UA) AUTO 1+ mg/dL (NEGATIVE); KETONE, URINE AUTO TRACE mg/dL (NEGATIVE); LEUKOCYTE ESTERASE, URINE AUTO TRACE (NEGATIVE); MUCUS, URINE SMALL (NEGATIVE); NITRITE, URINE AUTO NEGATIVE (NEGATIVE); PROTEIN, URINE AUTO NEGATIVE (NEGATIVE); RBC, URINE AUTO 2 /HPF (0-3); SQUAMOUS EPITHELIAL CELL UR AU 6 /HPF (0-6); UROBILINOGEN, URINE AUTO 0.2 mg/dL (0.0-2.0); WBC, URINE AUTO 1 /HPF (0-3)
== END ==
LOC: M LAB REF 12:13
PROVIDERS: ATTEND Obstetrics & Gynecology
DX: N32.81 Overactive bladder (principal); N39.46 Mixed incontinence; N36.41 Hypermobility of urethra

== ENCOUNTER → 2019-04-06 | Outpatient (CLI) | payer MEDICARE, MEDICAID ==
[2019-04-06 19:08] LABS: MEAN CORPUSCULAR HEMOGLOBIN 30.9 pg (27.0-33.0); MEAN CORPUSCULAR HGB CONC 29.7 g/dl (32.0-36.5); MEAN CORPUSCULAR VOLUME 103.9 fl (80.0-96.0); PLATELET COUNT, AUTOMATED 217 10^3/uL (150-450); RED BLOOD COUNT 3.56 10^6/uL (4.00-5.40); WHITE BLOOD COUNT 7.8 10^3/uL (4.0-10.0)
[2019-04-06 19:11] LABS: ALBUMIN 3.5 GM/DL (3.2-5.2); ALT/SGPT 19 U/L (12-78); BILIRUBIN,TOTAL 0.3 MG/DL (0.2-1.0); BLOOD UREA NITROGEN 18 MG/DL (7-18); CALCIUM LEVEL 8.4 MG/DL (8.8-10.2); CARBON DIOXIDE LEVEL 30 MEQ/L (21-32); CHLORIDE LEVEL 104 MEQ/L (98-107); GLOMERULAR FILTRATION RATE > 60.0 (>39); GLUCOSE, FASTING 106 MG/DL (70-100); POTASSIUM SERUM 4.4 MEQ/L (3.5-5.1); SODIUM LEVEL 138 MEQ/L (136-145); TOTAL PROTEIN 6.2 GM/DL (6.4-8.2)
== END ==
LOC: M WUC 11:34
PROVIDERS: ATTEND Family Medicine
DX: E11.9 Type 2 diabetes mellitus without complications (principal)

== ENCOUNTER → 2019-04-10 | Outpatient (CLI) | payer MEDICARE, MEDICAID ==
--- NOTE | 2019-04-12 22:38 | HOLTMON ---
[facility] Test Date: 2019-04-10 Pat Name: VICENTA SAMSON Department: Room: - Gender: Female Extrusion Former: Zonia Khan/GILBERTO TORRES : 1950 Requested By: EDIL Mar [facility] Order Number: [id number] Reading MD: Kirit Kwong Interpretive Statements Normal sinus rhythm with a maximum heart of 131 bpm noted at 10:34:53 AM and a minimum rate of 78 bpm at 2:26:03 AM. No activity reported with the maximum heart rate. No pause. Very rare premature isolated PACs. No supraventricular run. No premature isolated PVCs. Symptoms: Palpitations, Shortness of breath, Chest pain. No associated arrhythmias. Normal Holter monitor study Electronically Signed on 04-12-2019 22:38:40 EST by Kirit Kwong
== END ==
LOC: M EKG 10:35
PROVIDERS: ATTEND Family Medicine
DX: R55 Syncope and collapse (principal)

== ENCOUNTER → 2019-12-07 | Outpatient (CLI) | payer MEDICARE, MEDICAID ==
[~2019-12-07] MED LIST changes: -ASPI81TA85 PO; +ASPI81TA86 PO
[2019-12-07 13:15] LABS: HEMATOCRIT 45.2 % (36.0-47.0); HEMOGLOBIN 14.6 g/dl (12.0-15.5); MEAN CORPUSCULAR HEMOGLOBIN 30.1 pg (27.0-33.0); MEAN CORPUSCULAR HGB CONC 32.3 g/dl (32.0-36.5); MEAN CORPUSCULAR VOLUME 93.2 fl (80.0-96.0); PLATELET COUNT, AUTOMATED 205 10^3/uL (150-450); RED BLOOD COUNT 4.85 10^6/uL (4.00-5.40); WHITE BLOOD COUNT 7.7 10^3/uL (4.0-10.0)
[2019-12-07 13:33] LABS: ALBUMIN 3.5 GM/DL (3.2-5.2); ALT/SGPT 16 U/L (12-78); BILIRUBIN,TOTAL 0.4 MG/DL (0.2-1.0); BLOOD UREA NITROGEN 10 MG/DL (7-18); CALCIUM LEVEL 9.5 MG/DL (8.8-10.2); CARBON DIOXIDE LEVEL 32 MEQ/L (21-32); CHLORIDE LEVEL 101 MEQ/L (98-107); CREATININE FOR GFR 0.79 MG/DL (0.55-1.30); GLOMERULAR FILTRATION RATE > 60.0 (>39); GLUCOSE, FASTING 81 MG/DL (70-100); MAGNESIUM LEVEL 1.9 MG/DL (1.8-2.4); POTASSIUM SERUM 4.3 MEQ/L (3.5-5.1); SODIUM LEVEL 136 MEQ/L (136-145); TOTAL PROTEIN 6.6 GM/DL (6.4-8.2)
[2019-12-07 13:35] LABS: HEMOGLOBIN A1c 5.6 %
== END ==
LOC: M LAB 11:37
PROVIDERS: ATTEND Family Medicine
DX: E11.9 Type 2 diabetes mellitus without complications (principal); E83.42 Hypomagnesemia

== ENCOUNTER → 2019-12-07 | Outpatient (CLI) | payer MEDICARE, MEDICAID ==
--- NOTE | 2019-12-15 11:19 | REP ---
LUMBOSACRAL SPINE SERIES HISTORY: Scoliosis. TECHNIQUE: Five views of the lumbosacral spine are performed in the AP and lateral projections with flexion and extension lateral views. FINDINGS: There is no compression fracture. There is posterior fusion with screws and rods posteriorly fusing L4 and L5 levels. There is very mild anterolisthesis of L4 on L5. This is unchanged compared to a prior study of 09/13/2014. This does not change with flexion and extension. The remainder of the vertebral bodies are well aligned with no subluxation. There is mild diffuse spurring. There is mild disc space narrowing and subchondral sclerosis at L2-3. There is slight narrowing and subchondral sclerosis at L4-5 and L5-S1. The posterior elements are intact. There are hypoplastic 12th ribs. Metallic clips are seen in the right upper quadrant of the abdomen. IMPRESSION: Prior posterior fusion at L4-5 with slight anterior listhesis of L4 on L5. This does not change with flexion and extension, and there is no change when compared to the prior study of 09/13/2014. There are mild diffuse degenerative changes. MTDD
== END ==
LOC: M RAD 11:43
PROVIDERS: ATTEND Physician Assistant
DX: M16.0 Bilateral primary osteoarthritis of hip (principal); M51.35 Other intervertebral disc degeneration, thoracolumbar region; M51.37 Other intervertebral disc degeneration, lumbosacral region; M54.5 Low back pain; M41.20 Other idiopathic scoliosis, site unspecified; E11.9 Type 2 diabetes mellitus without complications; E83.42 Hypomagnesemia

== ENCOUNTER → 2019-12-11 | Outpatient (CLI) | payer MEDICARE, MEDICAID ==
--- NOTE | 2019-12-15 15:49 | DEXA ---
AP SPINE L1 - L4 1.481 2.3 4.0 LT FEMUR TOTAL 1.079 0.6 2.1 LT NECK 0.979 -0.4 1.3 RT FEMUR TOTAL 1.009 0.0 1.5 RT NECK 0.893 -1.0 0.7 TOTAL BODY TOTAL OTHER COMMENTS: Normal bone densitometry of the spine. Normal bone densitometry of the left hip. There is low bone density of the right hip. FOLLOW-UP: Recommendation for the next bone density exam: 2 years. KARO
== END ==
LOC: M WHC 08:04
PROVIDERS: ATTEND Physician Assistant
DX: M81.0 Age-related osteoporosis without current pathological fracture (principal); M54.5 Low back pain; M85.851 Other specified disorders of bone density and structure, right thigh

== ENCOUNTER → 2019-12-16 | Outpatient (CLI) | payer MEDICARE, MEDICAID ==
--- NOTE | 2019-12-16 07:51 | REPVR ---
PROCEDURE INFORMATION: Exam: CT Lumbar Spine Without Contrast Exam date and time: 12/16/2019 7:20 AM Age: 69 years old Clinical indication: Other: Back pain, HX surg, new SX, eval hardware, mri also; Prior surgery; Surgery date: 6+ months TECHNIQUE: Imaging protocol: Computed tomography images of the lumbar spine without contrast. Radiation optimization: All CT scans at this facility use at least one of these dose optimization techniques: automated exposure control; mA and/or kV adjustment per patient size (includes targeted exams where dose is matched to clinical indication); or iterative reconstruction. COMPARISON: CR Spine. Lumbosacral, complete 12/07/2019 12:35 PM FINDINGS: Vertebrae: The patient is status post partial right L4 laminectomy with postsurgical fixation of L4 and L5 with grossly intact rods and screws. There is grade 1 anterolisthesis of L4 on L5. Discs/Spinal canal/Neural foramina: There is extensive L3-L4, L4-L5 and L5-S1 facet degenerative changes with apparent ankylosis of the L3-L4 and L4-L5 facet joints. Vacuum phenomena seen in the left L5-S1 facet. Mild facet arthrosis seen at T12-L1, L2-L3 and L2-L3 more pronounced on the right. There is moderate narrowing of the right L3-L4 through L5-S1 neural foramina. There is mild narrowing of the left L5-S1 neural foramina. There is also minimal encroachment by facet productive changes at the posterior aspect of T12-L1 and L1-L2 neural foramina. Other bones/joints: There is diffuse bony osteopenia. Vasculature: There is moderate to severe aortic and iliac mural calcifications. Soft tissues: Unremarkable. IMPRESSION: 1. No CT evidence of acute lumbar spine abnormality. 2. 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 Electronically signed by: Martinez Lisa On 12/16/2019 07:51:50 AM
--- NOTE | 2019-12-16 12:10 | REPVR ---
PROCEDURE INFORMATION: Exam: MR Lumbar Spine Without Contrast. Exam date and time: 12/16/2019 8:17 AM Age: 69 years old Clinical indication: Lumbago with sciatica; Bilateral; Prior surgery; Surgery date: <1 month; Surgery type: Fusion; Patient HX: Low back pain, recent surgery; Additional info: Back pain, HX surg, new SX, eval hardware, CT also TECHNIQUE: Imaging protocol: Multiplanar magnetic resonance images of the lumbar spine without intravenous contrast. COMPARISON: CT Spine, lumbar w/o contrast 12/16/2019 7:21 AM FINDINGS: Vertebrae: There are vertical rods and pedicle screws at L4 and L5. There is 3 mm of grade 1 anterolisthesis of L4 with respect to L5. Normal vertebral body alignment is otherwise preserved. Spinal cord: Normal signal. No cord compression. L1-L2: There is shallow disc bulging. There is moderate facet hypertrophy. There is mild right and moderate left neural foraminal narrowing. L2-L3: There is shallow disc bulging. There is moderate facet and ligamentous hypertrophy. Fluid is noted within the facet joints. There is moderate bilateral neural foraminal narrowing. L3-L4: There is shallow disc bulging. There is moderate facet hypertrophy. There is moderate right neural foraminal narrowing. L4-L5: There are fusion changes. There is disc bulging/uncovering related to listhesis. There is moderate right and mild to moderate left neural foraminal narrowing. L5-S1: There is shallow disc bulging. There is severe facet hypertrophy. There is moderate right and mild left neural foraminal narrowing. Soft tissues: Unremarkable. IMPRESSION: Degenerative disc disease and spondylosis. Changes contribute to multilevel [id number] neural foraminal narrowing. Electronically signed by: Sneha Nicholas On 12/16/2019 12:09:19 PM
== END ==
LOC: M RAD 06:55
PROVIDERS: ATTEND Physician Assistant
DX: M54.5 Low back pain (principal)

== ENCOUNTER → 2020-03-15 | Outpatient (CLI) | payer MEDICARE, MEDICAID | LOC: M LAB 10:08 | PROVIDERS: ATTEND Family Medicine | DX: F17.210 Nicotine dependence, cigarettes, uncomplicated (principal); Z79.899 Other long term (current) drug therapy | CPT/HCPCS: 36415; G0480 ==

== ENCOUNTER → 2020-07-18 | Outpatient (CLI) | payer MEDICARE, MEDICAID ==
--- NOTE | 2020-07-18 12:14 | PFTRPT ---
Height: 61.00 Inches Weight: 169.00 Lbs BSA: 1.76 Diagnosis: C34.11 DATE: 07/18/2020 ORDERING PHYSICIAN: Be Navas MD Pre and post bronchodilator studies have excellent technical quality. Forced vital capacity is normal. FEV1 is borderline proportion. Obstructive index is therefore borderline as well. Expiratory limit of the flow-volume loop does suggest some degree of flow rate limitation. No significant bronchodilator response is identified. Total lung capacity is normal. Residual volume is generally in proportion. Diffusing capacity is significantly reduced and does not correct for alveolar. No hemoglobin available for correction. Airway resistance and conductance are normal. IMPRESSION: Suspect at least a mild obstructive ventilatory impairment with significant diffusing capacity impairment. Please correlate clinically. MTDD
== END ==
LOC: M CARPUL 11:07
PROVIDERS: ATTEND Thoracic Surgery (Cardiothoracic Vascular Surgery)
DX: Z01.818 Encounter for other preprocedural examination (principal); Z11.52 Encounter for screening for COVID-19